=== PATIENT | female | born 1990 | race Hispanic/Latino ===

== ENCOUNTER 2017-03-15 13:58 | Emergency (ER) | payer OTHER ==
[2017-03-15 14:09] VITALS: BP 137/86; PULSE 89; RESP 18; TEMP 98.2; O2SAT 99
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
--- NOTE | 2017-03-15 19:03 | RAD ---
PROCEDURE: Cervical Spine Radiographs. HISTORY: Pain. COMPARISON: None. FINDINGS: BONES: Straightened cervical curvature. No fracture, spondylolisthesis or destructive bony lesion appreciable. DISC SPACES: Normal. SOFT TISSUES: Normal. No prevertebral soft tissue swelling. OTHER FINDINGS: None. IMPRESSION: Straightened curvature. No fracture or spondylolisthesis appreciated.
== END 2017-03-15 15:40 | disposition home or self-care (01) ==
LOC: H.ER 13:58
DX: S13.4XXA Sprain of ligaments of cervical spine, initial encounter (principal); V43.52XA Car driver injured in collision with other type car in traffic accident, initial encounter; Y92.410 Unspecified street and highway as the place of occurrence of the external cause

== ENCOUNTER 2018-05-06 12:47 | Emergency (ER) | payer BC, OTHER ==
[2018-05-06 13:09] VITALS: BP 153/97; PULSE 68; RESP 18; TEMP 98.7; O2SAT 99
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
--- NOTE | 2018-05-06 14:54 | ED PDOC ---
HPI: Head Injury Time Seen by Provider: 05/06/18 13:19 Chief Complaint (Nursing): Headache Past Medical History Vital Signs: Last Vital Signs Temp 98.7 F 05/06/18 13:06 Pulse 68 05/06/18 13:06 Resp 18 05/06/18 13:06 BP 153/97 H 05/06/18 13:06 Pulse Ox 99 05/06/18 14:52 - Medical History PMH: Seizures - Family History Family History: States: Unknown Family Hx - Home Medications Home Medications: Ambulatory Orders Medication Instructions Recorded Cyclobenzaprine [Cyclobenzaprine 10 mg PO TID PRN #20 tab 03/15/17 HCl] Naproxen [Naprosyn] 500 mg PO BID #20 tab 03/15/17 - Allergies Allergies/Adverse Reactions: Allergies Allergy/AdvReac Type Severity Reaction Status Date / Time No Known Allergies Allergy Verified 03/15/17 14:09 - ECG O2 Sat by Pulse Oximetry: 99 Disposition - Clinical Impression Clinical Impression: Head injury, Cervical sprain - Patient ED Disposition Is Patient to be Admitted: No - Disposition Referrals: [facility] [Outside] Wyatt Del Cid MD [Medical Doctor] - Disposition: Routine/Home Disposition Time: 14:53 Condition: STABLE Additional Instructions: FOLLOW UP WITH YOUR NEUROLOGIST OR YOUR DOCTOR FOR FURTHER EVALUATION RETURN TO ED IMMEDIATELY IF SYMPTOMS WORSEN MICHELL ABDI, thank you for letting us take care of you today. Your provider was Liam Rebolledo MD and you were treated for HEAD INJURY. The emergency medical care you received today was directed at your acute symptoms. If you were prescribed any medication, please fill it and take as directed. It may take several days for your symptoms to resolve. Return to the Emergency Department if your symptoms worsen, do not improve, or if you have any other problems. Please contact your doctor or call one of the physicians/clinics you have been referred to that are listed on the Patient Visit Information form that is included in your discharge packet. Bring any paperwork you were given at discharge with you along with any medications you are taking to your follow up visit. Our treatment cannot replace ongoing medical care by a primary care provider outside of the emergency department. Thank you for allowing the [email or web address] team to be part of your care today. If you had an X-Ray or CT scan: A Radiologist will review the ED reading if any change in treatment is needed we will contact you. If you had a blood, urine, or wound culture: It will take several days for the results, if any change in treatment is needed we will contact you. If you had an STI test: It will take 48 hours for the results. Please call after 1 week if you have not heard back. Instructions: Closed Head Injury (DC), Cervical Muscle Strain (DC) Forms: [facility] ([place]ux[place]bourger), [facility] ED School/Work Excuse
== END 2018-05-06 15:26 | disposition home or self-care (01) ==
LOC: H.ER 12:47
DX: S09.90XA Unspecified injury of head, initial encounter (principal); S13.4XXA Sprain of ligaments of cervical spine, initial encounter; W19.XXXA Unspecified fall, initial encounter; Y92.89 Other specified places as the place of occurrence of the external cause; G40.909 Epilepsy, unspecified, not intractable, without status epilepticus